=== PATIENT | female | born 1990 | race Caucasian/White ===

== ENCOUNTER 2019-10-30 19:28 | Emergency (ER) | payer BC ==
--- NOTE | 2019-10-30 20:02 | EDM.PDOC ---
ED HPI GENERAL MEDICAL PROBLEM - General Chief Complaint: Skin Complaint Stated Complaint: INFECTION IN LEFT FOOT Time Seen by Provider: 10/30/19 19:59 Source of Information: Reports: Patient History Limitations: Reports: No Limitations - History of Present Illness INITIAL COMMENTS - FREE TEXT/NARRATIVE: HISTORY AND PHYSICAL: History of present illness: Patient is a 29-year-old female who presents to the ED today with concern of possible foot infection. Patient states she was diagnosed with eczema a year ago but despite treatments for this has had issues with her left foot getting infected over the course of the last 3 months. Patient states she has been on antibiotics 2 times due to an imposed infection of her eczema. Patient states that she is also used topical prescription steroids without improvement of her eczema and has continued to get secondary infections despite treatment. Patient states her primary care provider is Dr. Rolon at [facility]. Patient states that she noticed again today that her foot was getting infected as it seems more swollen and painful. Patient states this is what has happened in the past when she is had to go on antibiotics before. Patient denies any trauma or injury to the foot. Patient denies any other symptoms or concerns and denies any health history. Patient denies fever, chills, chest pain, shortness of breath, or cough. Denies headache, neck stiff ness, change in vision, syncope, or near syncope. Denies nausea, vomiting, abdominal pain, diarrhea, constipation, or dysuria. Has not noted any blood in urine or stool. Patient has been eating and drinking appropriately. Review of systems: As per history of present illness and below otherwise all systems reviewed and negative. Past medical history: As per history of present illness and as reviewed below otherwise noncontributory. Surgical history: As per history of present illness and as reviewed below otherwise noncontributory. Social history: See social history for further information Family history: As per history of present illness and as reviewed below otherwise noncontributory. Physical exam: General: Patient is alert, oriented, and in no acute distress. Patient sitting comfortably on exam table. HEENT: Atraumatic, normocephalic, pupils equal and reactive bilaterally, negative for conjunctival pallor or scleral icterus, mucous membranes moist, TMs normal bilaterally, throat clear, neck supple, nontender, trachea midline. No drooling or trismus noted. No meningeal signs. No hot potato voice noted. Lungs: Clear to auscultation, breath sounds equal bilaterally, chest nontender. Heart: S1S2, regular rate and rhythm without overt murmur Abdomen: Soft, nondistended, nontender. Negative for masses or hepatosplenomegaly. Negative for costovertebral tenderness. Pelvis: Stable nontender. Genitourinary: Deferred. Rectal: Deferred. Skin: Intact, warm, dry. No lesions. There is a scaly, dry, crusted rash that is erythematous and mildly warm over the lateral aspect of the left foot. There is a scaly, dry, crusted rash of the medial aspect of the left foot but this rash is not erythematous or warm. There are scattered areas of similar dry , scaly, crusted rashes and smaller circular areas over the right foot as well as scattered on the forearms. There is no petechiae or purpura. Negative for drainage. The area was outlined using a surgical marker. Extremities: See skin. Otherwise, atraumatic, negative for cords or calf pain. Neurovascular unremarkable. Neuro: Awake, alert, oriented. Cranial nerves II through XII unremarkable. Cerebellum unremarkable. Motor and sensory unremarkable throughout. Exam nonfocal. Notes: On exam, there is an apparent underlying scaly and dry rash that is nonspecific but likely related to patient's eczema or process similar to this. I do think that there is an early cellulitic process starting in the lateral aspect of the left foot. This area was outlined using a surgical marker. Patient was provided information for the dermatology clinic for further evaluation of this rash as this is been ongoing for quite some time per patient despite routine treatment trails with her PCP. Tachycardia resolved after without any therapeutics or intervention. Shirley importance for follow-up with the fireworks assembler as well as her primary care provider. Voices understanding and is agreeable to plan of care. Denies any further questions or concerns at this time. Diagnostics: CBC, CMP, Foot XR Therapeutics: Rocephin Prescription: Bactrim DS Impression: Cellulitis, left foot Dermatitis Plan: 1. Take medication as prescribed. You can alternate ibuprofen and Tylenol as directed for pain and discomfort. 2. Follow-up with the fireworks assembler as well as your primary care provider as discussed. The number has been provided above for you to call and establish an appointment time. 3. Return to the ED as needed and as discussed. Definitive disposition and diagnosis as appropriate pending reevaluation and review of above. left foot Pain Score (Numeric/FACES): 8 - Related Data Allergies Allergy/AdvReac Type Severity Reaction Status Date / Time No Known Allergies Allergy Verified 10/30/19 19:59 Home Meds: Home Meds Sulfamethoxazole/Trimethoprim [Bactrim Ds Tablet] 1 each PO BID 10 Days #20 tablet 10/30/19 [Rx] ED ROS GENERAL - Review of Systems Review Of Systems: Comprehensive ROS is negative, except as noted in HPI. ED EXAM, SKIN/RASH Exam: See Below (See dictation) Course - Vital Signs Last Recorded V/S: Last Vital Signs Temp 97.3 F 10/30/19 19:55 Pulse 120 H 10/30/19 19:55 Resp 18 10/30/19 19:55 BP 133/82 10/30/19 19:55 Pulse Ox 98 10/30/19 19:55 - Orders/Labs/Meds Labs: Laboratory Tests 10/30/19 10/30/19 Range/Units 20:30 20:30 WBC 8.54 (4.0-11.0) K/uL RBC 4.41 (4.30-5.90) M/uL Hgb 13.7 (12.0-16.0) g/dL Hct 40.3 (36.0-46.0) % MCV 91.4 (80.0-98.0) fL MCH 31.1 (27.0-32.0) pg MCHC 34.0 (31.0-37.0) g/dL RDW Std Deviation 41.2 (28.0-62.0) fl RDW Coeff of Nubia 12 (11.0-15.0) % Plt Count 334 (150-400) K/uL MPV 9.40 (7.40-12.00) fL Neut % (Auto) 62.1 (48.0-80.0) % Lymph % (Auto) 28.2 (16.0-40.0) % Rutherford % (Auto) 6.0 (0.0-15.0) % Eos % (Auto) 3.2 (0.0-7.0) % Baso % (Auto) 0.5 (0.0-1.5) % Neut # (Auto) 5.3 (1.4-5.7) K/uL Lymph # (Auto) 2.4 (0.6-2.4) K/uL Rutherford # (Auto) 0.5 (0.0-0.8) K/uL Eos # (Auto) 0.3 (0.0-0.7) K/uL Baso # (Auto) 0.0 (0.0-0.1) K/uL Nucleated RBC % 0.0 /100WBC Nucleated RBCs # 0 K/uL Sodium 142 (136-145) mmol/L Potassium 3.7 (3.5-5.1) mmol/L Chloride 105 (98-107) mmol/L Carbon Dioxide 28.2 (21.0-32.0) mmol/L BUN 9 (7.0-18.0) mg/dL Creatinine 1.0 (0.6-1.0) mg/dL Est Cr Clr Drug Dosing TNP Estimated GFR (MDRD) > 60.0 ml/min Glucose 107 H (74-106) mg/dL Calcium 9.1 (8.5-10.1) mg/dL Total Bilirubin 0.5 (0.2-1.0) mg/dL AST 16 (15-37) IU/L ALT 23 (14-63) IU/L Alkaline Phosphatase 56 (46-116) U/L Total Protein 7.1 (6.4-8.2) g/dL Albumin 3.9 (3.4-5.0) g/dL Globulin 3.2 (2.6-4.0) g/dL Albumin/Globulin Ratio 1.2 (0.9-1.6) Meds: Medications Discontinued Medications Generic Name Dose Route Start Last Admin Trade Name Freq PRN Reason Stop Dose Admin Ceftriaxone Sodium 1 gm 10/30/19 20:10 10/30/19 20:29 Rocephin IM 10/30/19 20:11 1 gm ONETIME ONE Administration Lidocaine HCl Confirm 10/30/19 20:27 10/30/19 20:35 Xylocaine-Mpf 1% Administered 10/30/19 20:28 Not Given Dose 4 mls @ as directed .ROUTE .STK-MED ONE Ketorolac Tromethamine 60 mg 10/30/19 20:45 Toradol IM 10/30/19 20:46 ONETIME ONE Lidocaine HCl 2.1 ml 10/30/19 20:34 10/30/19 20:35 Xylocaine-Mpf 1% INJECT 10/30/19 20:35 2.1 ml ONETIME ONE Administration Departure - Departure Time of Disposition: 20:59 Disposition: Home, Self-Care 01 Clinical Impression: Dermatitis Cellulitis Qualifiers: Site of cellulitis: extremity Site of cellulitis of extremity: lower extremity Laterality: left Qualified Code(s): L03.116 - Cellulitis of left lower limb - Discharge Information Prescriptions: Sulfamethoxazole/Trimethoprim [Bactrim Ds Tablet] 1 each PO BID 10 Days #20 tablet Referrals: Robert Rolon MD [Primary Care Provider] - Forms: ED Department Discharge Additional Instructions: The following information is given to patients seen in the emergency department who are being discharged to home. This information is to outline your options for follow-up care. We provide all patients seen in our emergency department with a follow-up referral. The need for follow-up, as well as the timing and circumstances, are variable depending upon the specifics of your emergency department visit. If you don't have a primary care physician on staff, we will provide you with a referral. We always advise you to contact your personal physician following an emergency department visit to inform them of the circumstance of the visit and for follow-up with them and/or the need for any referrals to a consulting specialist. The emergency department will also refer you to a specialist when appropriate. This referral assures that you have the opportunity for follow-up care with a specialist. All of these measure are taken in an effort to provide you with optimal care, which includes your follow-up. Under all circumstances we always encourage you to contact your private physician who remains a resource for coordinating your care. When calling for follow-up care, please make the office aware that this follow-up is from your recent emergency room visit. If for any reason you are refused follow-up, please contact the [facility] Emergency Department at and asked to speak to the emergency department charge nurse. [facility] [address] [place] [id number] Leyla Vilchis MD [facility] [address] , [address] [place] [address] Dermatology [facility] [address] [place] [address] 1. Take medication as prescribed. You can alternate ibuprofen and Tylenol as directed for pain and discomfort. 2. Follow-up with the fireworks assembler as well as your primary care provider as discussed. The number has been provided above for you to call and establish an appointment time. 3. Return to the ED as needed and as discussed. Sepsis Event Note - Focused Exam Vital Signs: Vital Signs Temp Pulse Resp BP Pulse Ox 10/30/19 19:55 97.3 F 120 H 18 133/82 98 Date Exam was Performed: 10/30/19 Time Exam was Performed: 20:59
[2019-10-30] MEDS ORDERED: cefTRIAXone 1 GM Vial IM ONE (20:10)
[2019-10-30] MEDS ORDERED: Lidocaine 1% 4 ML ONE (20:27)
[2019-10-30] MEDS ORDERED: Lidocaine 1% PF 2 ML SDV INJECT ONE (20:34)
--- NOTE | 2019-10-30 20:42 | CR ---
Left foot: 2 views of the left foot were obtained. Comparison: No previous foot exam. No soft tissue air is seen. Joint spaces are preserved. No calcaneal spurs are seen. No focal erosions are identified. No discrete fracture or other abnormality is appreciated. Impression: 1. Nothing acute is seen on 2 view left foot exam. Diagnostic code #1 This report was dictated in Mountain Standard Time
[2019-10-30] MEDS ORDERED: Ketorolac 60 MG/2 ML SDV IM ONE (20:45)
[2019-10-30 20:58] LABS: BLOOD UREA NITROGEN,BUN 9 mg/dL (7.0-18.0); CARBON DIOXIDE,CO2 28.2 mmol/L (21.0-32.0); CHLORIDE,CL 105 mmol/L (98-107); GLUCOSE RANDOM 107 mg/dL (74-106); POTASSIUM,K 3.7 mmol/L (3.5-5.1); SODIUM,NA 142 mmol/L (136-145)
== END 2019-10-30 21:19 | disposition home or self-care (01) ==
LOC: MW.ED 19:28
DX: L03.116 Cellulitis of left lower limb (principal); L30.9 Dermatitis, unspecified
CPT/HCPCS: 36415; 73620; 80053; 85025; 96372; 99284; J0696; J1885; J2001

== ENCOUNTER 2020-09-30 08:04 | Day surgery (SDC) | payer BC ==
[~2020-09-30 08:04] MED LIST: Glycopyrrolate 0.2 MG/ML SDV ONE; Lactated Ringers 1,000 ML IV SCH; Lidocaine 2% 5 ML SDV ONE; Midazolam 1 MG/ML 2 ML SDV ONE; Ondansetron 4 MG/2 ML SDV ONE; Propofol 200 MG/20 ML SDV ONE; Rocuronium Bromide 50 MG/5 ML Syringe ONE; Sodium Chloride 0.9% 10 ML SDV IV PRN; Sodium Chloride 0.9% 10 ML Syringe FLUSH PRN; Sodium Chloride 0.9% 2.5 ML Syringe FLUSH PRN; ceFAZolin 2 GM in Premix Bag 1 BAG IV ONE; fentaNYL 250 MCG/5 ML SDV ONE
[2020-09-30] MEDS ORDERED: fentaNYL 100 MCG/2 ML SDV ONE (08:43)
--- NOTE | 2020-09-30 09:00 | PCM.PREANE ---
Preanesthetic Assessment - Anesthesia/Transfusion/Family Hx Anesthesia History: Prior Anesthesia Without Reaction Family History of Anesthesia Reaction: No Transfusion History: No Prior Transfusion(s) Intubation History: Unknown - Review of Systems General: No Symptoms Pulmonary: No Symptoms Cardiovascular: No Symptoms Gastrointestinal: No Symptoms Neurological: No Symptoms Other: Reports: None - Physical Assessment Vital Signs: Last Vital Signs Temp 36.5 C 09/30/20 08:45 Pulse 60 09/30/20 08:45 Resp 16 09/30/20 08:45 BP 103/55 L 09/30/20 08:45 Pulse Ox 97 09/30/20 08:45 Height: 5 ft 7 in Weight: 86.183 kg ASA Class: 2 Mental Status: Alert & Oriented x3 Airway Class: Mallampati = 2 Dentition: Reports: Normal Dentition Thyro-Mental Finger Breadths: 3 Mouth Opening Finger Breadths: 2 (small mouth) ROM/Head Extension: Full Lungs: Clear to Auscultation, Normal Respiratory Effort Cardiovascular: Regular Rate, Regular Rhythm - Lab Values: Laboratory Last Values Urine HCG, Qual NEGATIVE (NEGATIVE) 09/30/20 08:13 - Allergies Allergies/Adverse Reactions: Allergies Allergy/AdvReac Type Severity Reaction Status Date / Time No Known Allergies Allergy Verified 09/30/20 08:26 - Blood Blood Available: No - Anesthesia Plan Pre-Op Medication Ordered: None - Acknowledgements Anesthesia Type Planned: General Anesthesia Pt an Appropriate Candidate for the Planned Anesthesia: Yes Alternatives and Risks of Anesthesia Discussed w Pt/Guardian: Yes Pt/Guardian Understands and Agrees with Anesthesia Plan: Yes PreAnesthesia Questionnaire HEENT History: Reports: None Cardiovascular History: Reports: None Respiratory History: Reports: Asthma Gastrointestinal History: Reports: Other (See Below) (biliary dyskinesia, h/o gastric ulcer) Genitourinary History: Reports: None MECHANICAL MAINTENANCE History: Reports: None Musculoskeletal History: Reports: None Neurological History: Reports: None Psychiatric History: Reports: None Endocrine/Metabolic History: Reports: None Hematologic History: Reports: None Immunologic History: Reports: None Oncologic (Cancer) History: Reports: None Dermatologic History: Reports: Eczema - Infectious Disease History Infectious Disease History: Reports: None, Other (See Below) (had COVID-19 infection 2 months ago (flu- like symptoms)) - Past Surgical History Head Surgeries/Procedures: Reports: None HEENT Surgical History: Reports: Oral Surgery Cardiovascular Surgical History: Reports: None Respiratory Surgical History: Reports: None GI Surgical History: Reports: None Female Surgical History: Reports: None Endocrine Surgical History: Reports: None Neurological Surgical History: Reports: None Musculoskeletal Surgical History: Reports: Other (See Below) Other Musculoskeletal Surgeries/Procedures:: surgery for fx ring finger-left hand Oncologic Surgical History: Reports: None Dermatological Surgical History: Reports: None - SUBSTANCE USE Tobacco Use Within Last Twelve Months: Other (See Below) (chew) - HOME MEDS Home Medications: Home Meds Albuterol Sulfate [Albuterol Sulfate Hfa] 1 - 2 puff INH ASDIRECTED PRN 07/04/20 [History] Scopolamine [Transderm-Scop] 1 patch TRDERM ONETIME 09/25/20 [History] Triamcinolone Acetonide [Nasacort] 1 spray NASBOTH DAILY 09/25/20 [History] - CURRENT (IN HOUSE) MEDS Current Meds: Current Medications Lactated Ringer's (Ringers, Lactated) 1,000 mls @ 125 mls/hr IV ASDIRECTED MITRA Last Admin: 09/30/20 08:46 Dose: 125 mls/hr Documented by: Sodium Chloride (Saline Flush) 10 ml FLUSH ASDIRECTED PRN PRN Reason: Keep Vein Open Sodium Chloride (Saline Flush) 2.5 ml FLUSH ASDIRECTED PRN PRN Reason: Keep Vein Open Sodium Chloride (Normal Saline) 10 ml IV ASDIRECTED PRN PRN Reason: IV Use Discontinued Medications Fentanyl (Sublimaze) Confirm Administered Dose 250 mcg .ROUTE .STK-MED ONE Stop: 09/30/20 07:38 Fentanyl (Sublimaze) Confirm Administered Dose 100 mcg .ROUTE .STK-MED ONE Stop: 09/30/20 08:44 Glycopyrrolate (Robinul) Confirm Administered Dose 0.4 mg .ROUTE .STK-MED ONE Stop: 09/30/20 07:42 Cefazolin Sodium/Dextrose 2 gm (/ Premix) 50 mls @ 100 mls/hr IV ONETIME ONE Stop: 09/30/20 05:29 Lidocaine (Xylocaine-Mpf 2%) Confirm Administered Dose 5 ml .ROUTE .STK-MED ONE Stop: 09/30/20 07:41 Midazolam HCl (Versed 1 Mg/Ml) Confirm Administered Dose 2 mg .ROUTE .STK-MED ONE Stop: 09/30/20 07:38 Ondansetron HCl (Zofran) Confirm Administered Dose 4 mg .ROUTE .STK-MED ONE Stop: 09/30/20 07:41 Propofol (Diprivan 20 Ml) Confirm Administered Dose 200 mg .[facility]TE [facility] Stop: 09/30/20 07:38 Rocuronium [place] (Rocuronium [place]) Confirm Administered Dose 50 mg .ROUTE [facility] ONE Stop: 09/30/20 07:41
[2020-09-30] MEDS ORDERED: Bupivacaine 0.5% 10 ML SDV ONE (09:46)
[2020-09-30] MEDS ORDERED: Octyl 2-Cyanoacrylate 1 Tube ONE (09:46)
[2020-09-30] MEDS ORDERED: ceFAZolin 1 GM Vial ONE (09:56)
[2020-09-30] MEDS ORDERED: Sodium Chloride 0.9% 20 ML ONE (09:56)
[2020-09-30] MEDS ORDERED: Glycopyrrolate 0.2 MG/ML SDV ONE ×2 (09:57→09:59)
[2020-09-30] MEDS ORDERED: HYDROmorphone 2 MG/ML Syringe ONE (10:33)
[2020-09-30] MEDS ORDERED: Ketorolac 30 MG/ML SDV ONE (11:27)
--- NOTE | 2020-09-30 12:00 | PCM.OPNOTE ---
- General Post-Op/Procedure Note Date of Surgery/Procedure: 09/30/20 Operative Procedure(s): Laparoscopic cholecystectomy Findings: adhesions of gallbladder to liver capsule consistent with chronic cholecystitis Pre Op Diagnosis: Biliary dyskinesia Post-Op Diagnosis: same Anesthesia Technique: General ET Tube Primary Surgeon: Gi Vasquez Fluid Replacement, Intraop: 1,500 Output, Urine Amount: 150 EBL in mLs: 5 Condition: Good
--- NOTE | 2020-09-30 12:29 | PCM.POSTAN ---
POST ANESTHESIA ASSESSMENT - MENTAL STATUS Mental Status: Alert, Oriented - VITAL SIGNS Vital Signs: Last Vital Signs Temp 37.2 C 09/30/20 11:47 Pulse 78 09/30/20 12:22 Resp 12 09/30/20 12:22 BP 112/65 09/30/20 12:22 Pulse Ox 98 09/30/20 12:22 - RESPIRATORY Respiratory Status: Respiratory Rate WNL, Airway Patent, O2 Saturation Stable - CARDIOVASCULAR CV Status: Pulse Rate WNL, Blood Pressure Stable - GASTROINTESTINAL GI Status: No Symptoms - PAIN Pain Score: 0 - POST OP HYDRATION Hydration Status: Adequate & Stable - OBSERVATIONS Free Text/Narrative:: No anesthesia problems
--- NOTE | 2020-09-30 13:30 | PCM48HPAN ---
Post Anesthesia Note - EVALUATION WITHIN 48HRS OF ANESTHETIC Vital Signs in Normal Range: Yes Patient Participated in Evaluation: Yes Respiratory Function Stable: Yes Airway Patent: Yes Cardiovascular Function Stable: Yes Hydration Status Stable: Yes (Taking PO well) Pain Control Satisfactory: Yes (Reports well-controlled pain, 4/10) Nausea and Vomiting Control Satisfactory: Yes (Denies nausea) Mental Status Recovered: Yes Vital Signs: Last Vital Signs Temp 37.2 C 09/30/20 11:47 Pulse 78 09/30/20 12:22 Resp 12 09/30/20 12:22 BP 112/65 09/30/20 12:22 Pulse Ox 98 09/30/20 12:22 - COMMENTS/OBSERVATIONS Free Text/Narrative:: Pt sitting in bed, states she is feeling well. Pain well-controlled with no nausea. Alert and oriented. Has support/care at home. Okay to discharge home.
--- NOTE | 2020-09-30 20:10 | OR ---
SURGEON: GI VASQUEZ MD DATE OF PROCEDURE: 09/30/2020 PREOPERATIVE DIAGNOSIS: Biliary dyskinesia. POSTOPERATIVE DIAGNOSIS: Biliary dyskinesia. PROCEDURE PERFORMED: Laparoscopic cholecystectomy. PRIMARY SURGEON: Gi Vasquez MD ANESTHESIA: General endotracheal anesthesia. FLUIDS: 1500 mL of crystalloid. ESTIMATED BLOOD LOSS: 5 mL. URINE OUTPUT: 150 mL. FINDINGS: Slightly distended gallbladder with adhesions to the liver capsule consistent with chronic cholecystitis. COMPLICATIONS: None. INDICATIONS: The patient is a 30-year-old female who presents to clinic with biliary dyskinesia. The patient and I discussed the need for a laparoscopic, possible open cholecystectomy. I discussed the procedure, expected perioperative course, and the risks including bleeding, infection, or damage to surrounding structures. The patient verbalized understanding and wishes to proceed. PROCEDURE IN DETAIL: The patient was brought to the OR, placed on the OR table in supine position. A time-out was completed verifying the patient's name, age, date of , allergies, and procedure to be performed. General endotracheal anesthesia was induced. The left arm was tucked at the patient's side, and a Roberts catheter placed. The abdomen was prepped and draped in usual standard fashion. I anesthetized the infraumbilical fold with 0.5% Marcaine plain. A 15 blade was used to make an incision along the infraumbilical fold. Using electrocautery, I dissected down to the subcutaneous fat layer. I then bluntly dissected down to the fascia. The fascia was elevated with Kochers and incised sharply with curved Chaidez scissors. I identified the peritoneum. This was grasped with hemostats, elevated and incised sharply using curved Chaidez scissors. Entry into the abdomen was palpated digitally. Stay sutures were placed on either side of the fascia using 0 Vicryl suture. A 12 mm Laya trocar was inserted into the abdomen, and it was insufflated. A 5 mm, 30-degree scope was placed in the abdomen, and I inspected the area underneath my initial trocar placement. No damage to surrounding structures was noted. The patient was placed into reverse Trendelenburg position and airplaned slightly to the left. 5 mm trocars were placed in the following locations under direct visualization; one in the epigastric area, one in the right flank, and one 2 fingerbreadths below the right subcostal margin in the midclavicular line. The dome of the gallbladder was grasped and elevated anteriorly. I identified the infundibulum. Using a combination of blunt dissection and hook cautery, I dissected free my cystic duct and artery. I identified the node of Calot. I then carried my dissection up the proximal cystic plate. This was slightly difficult given that there were adhesions in this area consistent with chronic cholecystitis. Using gentle blunt dissection, I was able to eventually create a window between the gallbladder in the proximal one-third of the cystic plate. There was a small artery running along this area. This was gently swept down. Once my critical view was achieved, I doubly clipped and ligated my cystic duct and artery. The remainder of the attachments of the gallbladder wall to the liver bed were taken down using hook cautery. Once the gallbladder was freed, it was placed in an Endo Catch bag and removed through the 12 mm port site. I then inspected my operative field. It was hemostatic with no evidence of bile leakage. During my dissection, a small rent had been made in the gallbladder, and bile was spilled in the abdomen. I irrigated the abdomen with 1 L of normal saline and suctioned this out. The 5 mm trocars were then removed under direct visualization. The abdomen was allowed to desufflate. The 12 mm trocar was removed as well. The fascia at the infraumbilical port site was closed with interrupted 0 Vicryl sutures. The subcutaneous fat layer was closed with a running 3-0 Vicryl stitch. The skin was closed with a running 4-0 Monocryl stitch. The 5 mm trocar sites were closed with interrupted 4-0 Monocryl sutures. Dermabond and sterile dressings were applied. The patient tolerated the procedure well and was transferred to the PACU in stable condition. All counts were complete and correct at the end of the case. ANNABEL / MICHELLE /[id number]
== END 2020-09-30 13:55 | disposition home or self-care (01) ==
LOC: MW.SDS 08:04
PROVIDERS: ATTEND Surgery
DX: K81.1 Chronic cholecystitis (principal); K82.8 Other specified diseases of gallbladder; F17.210 Nicotine dependence, cigarettes, uncomplicated; Z80.0 Family history of malignant neoplasm of digestive organs; Z79.899 Other long term (current) drug therapy
CPT/HCPCS: 47562; 81025; A9270; J0690; J1170; J1885; J2250; J2405; J2704; J3010; J3490; J7120; 00790